=== PATIENT | male | born 1975 | race Caucasian/White ===

== ENCOUNTER 2019-07-10 07:55 | Day surgery (SDC) | payer OTHER, SELFPAY ==
[2019-07-10] VITALS (7 sets, daily range): BP systolic 105–133; BP diastolic 69–87; PULSE 46–67; RESP 12–18; TEMP 36.4–36.6; O2SAT 96–100; BMI 24.3
--- NOTE | 2019-07-10 | PATH_ITS ---
[facility] Accession Number: [id number] . 01 Material submitted: . PART A: body - RANDOM BIOPSIES PART B: colon - HEPATIC POLYP PART C: rectum - RECTUM . 02 Diagnosis: A. Random Colon, Biopsies: Colonic mucosa with no diagnostic abnormality. Negative for active, chronic, and microscopic colitis. Negative for dysplasia and malignancy. . B. Hepatic Flexure, Polyp: Colonic mucosa with prominent benign lymphoid aggregate. Negative for serrated lesion, dysplasia or malignancy. Additional step sections examined. . C. Rectum, Biopsies: Mild active colitis; please see comment. Negative or granulomata, dysplasia or malignancy. V 07/12/2019 1431 Local . 02 Comment: The findings in the rectal biopsy raise a differential diagnosis including infection, drug/toxin-induced injury and, in the appropriate clinical setting, idiopathic inflammatory bowel disease. . 02 Electronically signed: . Trenton Pettit MD, PhD, Pathologist NPI- [id number] . 01 Gross description: . Part A: RANDOM BIOPSIES: Received in formalin are 4 fragment(s) of melgoza, soft tissue measuring 0.1 x 0.1 x 0.1 cm to 0.2 x 0.2 x 0.2 cm submitted entirely in 1 cassette(s) Part B: HEPATIC POLYP: Received in formalin is 1 fragment(s) of melgoza, soft tissue measuring 0.2 x 0.2 x 0.2 cm submitted entirely in 1 cassette(s) Part C: RECTUM: Received in formalin is 1 fragment(s) of melgoza, soft tissue measuring 0.2 x 0.2 x 0.2 cm submitted entirely in 1 cassette(s) /[facility] [place] 07/10/2019 1914 Local . 02 Pathologist provided ICD-10: K52.9 . 02 CPT . 489476, 365105, [id number] Performed at: 01 [facility] [address] [id number] MD Gil Blanc MD Phone: [phone] Performed at: 02 [facility] [address] [place], [place] [id number] MD Eliz Morton MD Phone: [phone]
--- NOTE | 2019-07-10 08:22 | PM.HP.1 ---
History of Present Illness History of Present Illness Date Patient Seen: 07/10/19 Chief complaint: [id number] Narrative: Altered bowel movements with blood in stool. No known ulcerative proctitis. 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 Need to assess for extended extent of disease. Risks, benefits, alternatives have been explained. Last colonoscopy 2007. Colonoscopy be performed today.
--- NOTE | 2019-07-10 08:23 | PM.OP.ENDO ---
Operative Date/Time/Diagnoses Date of procedure: 07/10/19 Pre-op diagnosis: See indication and findings Procedure & Clinicians Study performed: Colonoscopy Same procedure as scheduled: Yes Indications: Chronically abnormal bowel movements with blood in stool. Known ulcerative proctitis. Need to check for extent of disease Surgeon: Nicko Alvarez Procedure Notes Procedure in detail: After informed consent was obtained the patient was placed in left lateral decubitus position. The video colonoscope was introduced the rectum slowly advanced to the cecum. On slow withdrawal mucosa was carefully examined. The scope was removed. The patient tolerated procedure well. Blood loss none Complications none Sedation Total sedation time 26 minutes Versed 8 mg fentanyl 200 mg IV titration Findings 1. Ulcerative proctitis of the distal 4-5 cm of the rectum. Biopsies taken to rule out dysplasia 2. Otherwise completely normal colonoscopy to cecum. Random biopsies taken. 3. Glimpse inside the terminal ileum normal. Patient is to stay on his [place] suppositories and follow up with Dr. Garcia
[2019-07-10] MEDS: SODIUM CHLORIDE 0.9% 1,000 ML 21 ML IV (08:40)
[2019-07-10] MEDS: fentaNYL 250 MCG/5 ML INJ IV (09:25)
[2019-07-10] MEDS: MIDAZOLAM 5 MG/5 ML VIAL IV (09:26)
--- NOTE | 2019-07-10 10:29 | SUR.PHASEII ---
pt d/jean marie in wheelchair. in the front to pick him up. No complaints upon d/c.
== END 2019-07-10 10:30 | disposition home or self-care (01) ==
PROVIDERS: PCP Family Medicine; Referring Provider Internal Medicine Gastroenterology; Visit Provider Internal Medicine Gastroenterology
PROC: 0DJD8ZZ Inspection of Lower Intestinal Tract, Via Natural or Artificial Opening Endoscopic (ICD-10-PCS; CPT 45378; principal; 2019-07-10 08:30)
DX: K52.9 Noninfective gastroenteritis and colitis, unspecified (principal); K63.5 Polyp of colon
CPT/HCPCS: 45380; J2250; J3010